=== PATIENT | male | born 1990 | race Caucasian/White ===

== ENCOUNTER 2022-11-03 14:58 | Emergency (ER) | payer OTHER ==
[~2022-11-03] VITALS: Ht 172.7 cm; Wt 70.2 kg
[2022-11-03 14:58] VITALS: BP 125/74
[2022-11-03] MEDS ORDERED: SERT25TA85 PO (15:04)
[2022-11-03] MEDS ORDERED: methocarbamoL 500 MG TAB PO ONE (16:20)
[2022-11-03] MEDS ORDERED: IBUPROFEN 600MG TAB PO ONE (16:20)
[2022-11-03] MEDS ORDERED: METH-1164 PO (18:15)
[2022-11-03] MEDS ORDERED: IBUP-1022 PO (18:15)
== END 2022-11-03 18:21 | disposition home or self-care (01) ==
LOC: EDBD 14:58 → M ED 14:58
DX: M54.50 Low back pain, unspecified (principal)

== ENCOUNTER 2023-12-16 09:32 | Emergency (ER) | payer OTHER ==
[~2023-12-16] VITALS: Ht 172.7 cm; Wt 75.6 kg
[~2023-12-16 09:32] MED LIST: IBUP-1022 PO; METH-1164 PO; SERT25TA85 PO
[2023-12-16] MEDS ORDERED: CYCL5TAB (09:42)
[2023-12-16] MEDS ORDERED: NAPR-885 (09:42)
[2023-12-16 12:05] VITALS: BP 108/67; TEMP 97.4; O2SAT 100
[2023-12-16 12:33] LABS: Trichomonas vaginalis (AMP) NOT DETECTED (NEGATIVE)
[2023-12-16 12:56] LABS: GC DNA AMPLIFICATION NEGATIVE (NEGATIVE)
== END 2023-12-16 12:06 | disposition home or self-care (01) ==
LOC: M ED 09:32
DX: N50.819 Testicular pain, unspecified (principal); F32.A Depression, unspecified